=== PATIENT | female | born 1950 | race Caucasian/White ===

== ENCOUNTER → 2019-08-14 | Outpatient (CLI) | payer MEDICARE, OTHER ==
[~2019-08-14] MED LIST: CHOL10003 PO; LEVO112T4 PO; LOSA1TAB25 PO; [UNRECOGNIZED DRUG - OTHER] PO
[2019-08-14 14:58] LABS: BASOPHILS # (AUTO) 0.05 x10^3/uL (0-0.1); BASOPHILS % (AUTO) 1 % (0-1); EOSINOPHILS # (AUTO) 0.11 x10^3/uL (0-0.4); EOSINOPHILS % (AUTO) 2 % (1-7); LYMPHOCYTES # (AUTO) 2.19 x10^3/uL (1-3.4); LYMPHOCYTES % (AUTO) 29 % (22-44); MD NO; MEAN CORPUSCULAR HEMOGLOBIN 31.3 pg (27.0-34.8); MEAN CORPUSCULAR HGB CONC 33.3 g/dL (32.4-35.8); MEAN CORPUSCULAR VOLUME 94.1 fL (80-100); MEAN PLATELET VOLUME 7.9 fL (7.4-10.4); MONOCYTES # (AUTO) 0.48 x10^3/uL (0.2-0.8); MONOCYTES % (AUTO) 6 % (2-9); NEUTROPHILS # (AUTO) 4.75 x10^3/uL (1.8-6.8); NEUTROPHILS % (AUTO) 63 % (42-75); PLATELET COUNT 229 x10^3/uL (130-400); RED CELL DISTRIBUTION WIDTH 13.2 % (9.6-15.2)
[2019-08-14 15:10] LABS: MICROSCOPIC NOT IND
[2019-08-14 15:10] LABS: ALANINE AMINOTRANSFERASE 25 U/L (12-78); ALBUMIN 3.7 g/dL (3.4-5.0); ANION GAP 8 mmol/L (5-15); CALCIUM 9.7 mg/dL (8.5-10.1); CHLORIDE 108 mmol/L (98-107); CREATININE 1.16 mg/dL (0.55-1.02)
[2019-08-14 15:12] LABS: ALKALINE PHOSPHATASE 81 U/L (45-117); BILIRUBIN,TOTAL 0.6 mg/dL (0.2-1.0); TOTAL PROTEIN 7.6 g/dL (6.4-8.2)
[2019-08-14 15:22] LABS: CULTURE INDICATED? NO
== END | disposition home or self-care (01) ==
LOC: STAR 13:54
PROVIDERS: ATTEND Obstetrics & Gynecology Gynecology
DX: Z01.818 Encounter for other preprocedural examination (principal); N95.0 Postmenopausal bleeding; D25.9 Leiomyoma of uterus, unspecified; M47.814 Spondylosis without myelopathy or radiculopathy, thoracic region; I45.19 Other right bundle-branch block
CPT/HCPCS: 36415; 71046; 80053; 81003; 85025; 93005

== ENCOUNTER 2019-08-21 09:28 | Day surgery (SDC) | payer MEDICARE ==
[~2019-08-21] VITALS: Ht 165.1 cm; Wt 119.0 kg
[~2019-08-21 09:28] MED LIST changes: +LIDOCAINE 1%-EPI 1:100K, 20ML ONE
[2019-08-21] MEDS ORDERED: LACTATED RINGERS 1,000 ML IV SCH (09:40)
[2019-08-21] MEDS ORDERED: MIDAZOLAM 1 MG/ML, 2ML ONE (10:56)
[2019-08-21] MEDS ORDERED: FENTANYL PF 250 MCG/5ML ONE (10:56)
[2019-08-21] MEDS ORDERED: HYDROmorphone 2 MG/ML, 1ML IVPush PRN (12:00)
[2019-08-21] MEDS ORDERED: ONDANSETRON 2MG/ML, 2ML IV PRN (12:00)
[2019-08-21] MEDS ORDERED: FENTANYL PF 100 MCG/2ML IV PRN (12:00)
[2019-08-21] MEDS ORDERED: hydrALAzine 20 MG/ML, 1ML IV PRN (12:00)
[2019-08-21] MEDS ORDERED: OXYcodone 5 MG/5 ML ORAL.SOL UDC PO PRN (12:00)
[2019-08-21] MEDS ORDERED: PROMETHAZINE 25 MG/ML, 1ML IV PRN (12:00)
[2019-08-21] MEDS ORDERED: LABETALOL 5MG/ML, 20ML IV PRN (12:00)
[2019-08-21] MEDS ORDERED: MEPERIDINE/PF 25MG/ML,1ML IVPush PRN (12:00)
[2019-08-21] MEDS ORDERED: DEXAMETHASONE 4 MG/ML, 1ML ONE (12:16)
[2019-08-21] MEDS ORDERED: PROPOFOL 10 MG/ML, 20ML ONE (12:16)
[2019-08-21] MEDS ORDERED: ONDANSETRON 2MG/ML, 2ML ONE (12:16)
[2019-08-21] MEDS ORDERED: SUCCINYLCHOLINE 20 MG/ML, 10ML ONE (12:16)
== END 2019-08-21 14:40 | disposition home or self-care (01) ==
LOC: OUT 09:28
PROVIDERS: ATTEND Obstetrics & Gynecology Gynecology
DX: N95.0 Postmenopausal bleeding (principal); C54.1 Malignant neoplasm of endometrium; N81.6 Rectocele; N72 Inflammatory disease of cervix uteri; N84.0 Polyp of corpus uteri; I10 Essential (primary) hypertension; Z79.890 Hormone replacement therapy; Z79.899 Other long term (current) drug therapy; Z85.3 Personal history of malignant neoplasm of breast; Z90.10 Acquired absence of unspecified breast and nipple
CPT/HCPCS: 58558; 88305; J0330; J1100; J2250; J2405; J2704; J3010; J3490; J7120